=== PATIENT | female | born 1940 | race Caucasian/White ===

== ENCOUNTER → 2019-08-02 12:50 | Outpatient (BNVA) | payer MEDICARE, SELFPAY | PROVIDERS: Visit Provider Nurse Practitioner Family | DX: I10 Essential (primary) hypertension (principal); E55.9 Vitamin D deficiency, unspecified; H61.21 Impacted cerumen, right ear; F03.90 Unspecified dementia, unspecified severity, without behavioral disturbance, psychotic disturbance, mood disturbance, and anxiety; R26.81 Unsteadiness on feet; R42 Dizziness and giddiness; E78.5 Hyperlipidemia, unspecified; H91.90 Unspecified hearing loss, unspecified ear | CPT/HCPCS: 80053; 80061; 82306; 84443; 85025 ==